=== PATIENT | female | born 1980 | race Two or more races ===

== ENCOUNTER → 2020-03-28 | Outpatient (CLI) | payer OTHER | END | disposition home or self-care (01) | LOC: OFIC 805 13:45 | PROVIDERS: ATTEND Otolaryngology Otology & Neurotology | DX: K21.9 Gastro-esophageal reflux disease without esophagitis (principal); R09.82 Postnasal drip; J30.89 Other allergic rhinitis; J02.8 Acute pharyngitis due to other specified organisms; E04.1 Nontoxic single thyroid nodule; R49.0 Dysphonia ==

== ENCOUNTER 2020-06-27 14:38 | Outpatient (CLI) | payer OTHER | END 2020-06-27 15:30 | disposition home or self-care (01) | LOC: OFIC 805 14:38 | PROVIDERS: ATTEND Otolaryngology Otology & Neurotology | DX: K21.9 Gastro-esophageal reflux disease without esophagitis (principal); R09.82 Postnasal drip; J02.8 Acute pharyngitis due to other specified organisms ==

== ENCOUNTER 2020-12-18 09:13 | Outpatient (CLI) | payer OTHER | END 2020-12-18 09:29 | disposition home or self-care (01) | LOC: SONOGRAMA 09:13 | PROVIDERS: ATTEND Obstetrics & Gynecology Gynecology | DX: N84.0 Polyp of corpus uteri (principal) ==